=== PATIENT | female | born 1955 | race Caucasian/White ===

== ENCOUNTER 2022-11-08 07:51 | Outpatient (REF) | payer BC, SELFPAY ==
--- NOTE | ~2022-11-08 | XR_ITS ---
EXAMINATION: XR KNEE, RIGHT XR KNEE AP STANDING CLINICAL INFORMATION: Pain. COMPARISON: None available. TECHNIQUE: Lateral and axial views of the right knee were obtained. AP bilateral standing view of the knees was obtained. FINDINGS: There is mild bony demineralization. There is moderately severe narrowing of the bilateral lateral joint space compartments. There is a secondary bilateral valgus configuration. There is moderate narrowing of the right patellofemoral compartment. There is tricompartment peripheral osteophyte formation of the bilateral knees. No fracture or dislocation is seen. There is a moderately large right knee joint effusion. No foreign body is noted. XR/XR knee RT 2V IMPRESSION: 1. There is moderately severe osteoarthritic change of the lateral joint space compartment of the right knee, and moderate osteoarthritic changes seen of the patellofemoral compartment. 2. There is moderately severe osteoarthritic change of the lateral joint space compartment of the left knee. 3. There is a moderately large right knee joint effusion.
--- NOTE | ~2022-11-08 | XR_ITS ---
EXAMINATION: XR KNEE, RIGHT XR KNEE AP STANDING CLINICAL INFORMATION: Pain. COMPARISON: None available. TECHNIQUE: Lateral and axial views of the right knee were obtained. AP bilateral standing view of the knees was obtained. FINDINGS: There is mild bony demineralization. There is moderately severe narrowing of the bilateral lateral joint space compartments. There is a secondary bilateral valgus configuration. There is moderate narrowing of the right patellofemoral compartment. There is tricompartment peripheral osteophyte formation of the bilateral knees. No fracture or dislocation is seen. There is a moderately large right knee joint effusion. No foreign body is noted. XR/XR knee standing BI IMPRESSION: 1. There is moderately severe osteoarthritic change of the lateral joint space compartment of the right knee, and moderate osteoarthritic changes seen of the patellofemoral compartment. 2. There is moderately severe osteoarthritic change of the lateral joint space compartment of the left knee. 3. There is a moderately large right knee joint effusion.
== END 2022-11-08 07:52 | disposition home or self-care (01) ==
LOC: HO.HOSX 07:51
PROVIDERS: PCP Internal Medicine; Visit Provider Orthopaedic Surgery
DX: M17.11 Unilateral primary osteoarthritis, right knee (principal)
CPT/HCPCS: 73560; 73565

== ENCOUNTER 2023-01-09 08:17 | Outpatient (AMB) | payer BC, SELFPAY ==
--- NOTE | 2023-01-09 08:18 | MHC.OFFVIS ---
Intake Intake Visit Reasons: yumiko- Meniscal Surgery, Bone on bone Intake Note: Kierra is a 67 year old female who presents with complaints of progressively worsening right knee pain and giving way. She did undergo right knee arthroscopic surgery in 2009. She had fairly good relief from that procedure. She did re-injure her right knee approximately 1 year ago. She twisted her knee and had acute onset of pain. Most of her pain is along the medial and lateral aspects of her right knee. She states that her right knee will give out several times per day. She has done physical therapy for 12 weeks over the last 6 months which aggravated her pain. She has also tried Tylenol which gives her minimal relief. She is not able to take anti-inflammatory medicines because she is on Xarelto. She has had injections in the past which gave her temporary relief. She would like to hold off on total knee replacement surgery for as long as possible. Allergies Penicillins Allergy (Verified 01/09/23 08:20) Weakness Medication List - Last Reconciled 01/09/23 by Renzo Coats MD omeprazole 40 mg PO DAILY rivaroxaban (Xarelto) 20 mg PO DAILY simvastatin 40 mg PO DAILY timolol 0.25% 1 drp ophthalmic (eye) BID [facility] Medical History (Updated 11/08/22 @ 08:57 by Renzo Coats MD) High cholesterol Pulmonary embolism Surgical History (Updated 11/08/22 @ 08:20 by Gina Arroyo [facility]) History of lateral meniscus repair of right knee Social History Patient Tobacco Use Status: Never used Tobacco Current occupation: [employer] Physical Exam Const Other: Well-nourished well-developed very friendly female awake alert and oriented x3 in no acute distress Extrem Other: Bilateral lower extremity examination shows good capillary refill, no skin lesions noted, normal sensation light touch Right knee examination shows a mild effusion, mild crepitus with range of motion, tenderness along her medial and lateral joint lines, positive Nahun's test, no instability Office Procedures Joint Injection/Drain Joint Injection/Drain Primary Site: right knee Prep: site was prepped using aseptic technique Injected: 40 mg of, Kenalog and 1% plain lidocaine Procedure: The patient tolerated the procedure well Coding 27662 - Large joint Procedure code (CPT) selection complete Results Reviewed Results Reviewed: 01/09/23 08:20 Lidocaine HCl 2 % MPF [Xylocaine 2 % MPF] 5 ml .ROUTE .STK-MED ONE Triamcinolone Acetonide [Kenalog-40] 40 mg .ROUTE .STK-MED ONE X-rays of the patient's right knee show moderate diffuse joint space narrowing, no acute bony abnormalities MRI of the patient's right knee shows moderate diffuse degenerative changes, tearing of her medial meniscus and possible tearing of her lateral meniscus Assessment & Plan Assessment & Plan (1) Arthritis of right knee: Code(s): M17.11 - Unilateral primary osteoarthritis, right knee Plan Ms. Kee presents with right knee pain and mechanical symptoms due to early degenerative joint disease as well as medial and lateral meniscus tearing. I had a lengthy discussion with patient regarding the treatment options. The risks and benefits of a cortisone injection were discussed at length with the patient. The patient wished to proceed. She tolerated the injection well. Prior to the injections 7 cc of clear fluid were aspirated from her right knee. If she does not get lasting relief from the cortisone injection therapy she is considering undergoing right knee revision arthroscopic surgery later this year. She will contact my office to pick a surgery date when she is ready to do so. Surgery will most likely involve right knee diagnostic arthroscopy with arthroscopic partial medial meniscectomy and possible partial lateral meniscectomy. She will continue with her activity modifications in the meantime. Feel free to call me at any time should questions regarding her orthopedic management arise. I spent 22 minutes in reviewing the patient's records and imaging studies, seeing the patient and documenting in the medical record. Orders: Orders AMB Joint Injection/Aspiration Today M17.11 - Unilateral primary osteoarthritis, right knee Coding Level of Care Code Est Pt Level 2 (63796) Diagnoses Arthritis of right knee M17.11 CPT Codes Coding - 19908 Large joint: 72515 - Large joint ([id number])
== END 2023-01-09 08:40 | disposition home or self-care (01) ==
PROVIDERS: PCP Internal Medicine; Visit Provider Orthopaedic Surgery
DX: M17.11 Unilateral primary osteoarthritis, right knee (principal); Z96.651 Presence of right artificial knee joint
CPT/HCPCS: 20610; 99214

== ENCOUNTER → 2023-01-09 08:17 | Outpatient (BNVA) | payer BC, SELFPAY | PROVIDERS: PCP Internal Medicine; Visit Provider Orthopaedic Surgery | DX: M17.11 Unilateral primary osteoarthritis, right knee (principal) | CPT/HCPCS: 20610; J3301 ==

== ENCOUNTER 2023-03-28 07:52 | Outpatient (AMB) | payer BC, SELFPAY ==
--- NOTE | 2023-03-28 07:55 | MHC.OFFVIS ---
Intake Intake Visit Reasons: PreOp-Rt Knee Arthroscopy 04/19/23 Intake Note: Kierra is a 67 year old female who presents with complaints of progressively worsening right knee pain and giving way. She did undergo right knee arthroscopic surgery in 2009. She had fairly good relief from that procedure. She did re-injure her right knee approximately 1 year ago. She twisted her knee and had acute onset of pain. Most of her pain is along the medial and lateral aspects of her right knee. She states that her right knee will give out several times per day. She has done physical therapy for 12 weeks over the last 6 months which aggravated her pain. She has also tried Tylenol which gives her minimal relief. She is not able to take anti-inflammatory medicines because she is on Xarelto. She has had injections in the past which gave her temporary relief. She would like to hold off on total knee replacement surgery for as long as possible. Allergies Penicillins Allergy (Verified 01/09/23 08:20) Weakness Medication List - Last Reconciled 03/28/23 by Renzo Coats MD omeprazole 40 mg PO DAILY rivaroxaban (Xarelto) 20 mg PO DAILY simvastatin 40 mg PO DAILY timolol 0.25% 1 drp ophthalmic (eye) BID [facility] Medical History (Updated 03/28/23 @ 07:58 by Renzo Coats MD) High cholesterol Pulmonary embolism Surgical History (Updated 11/08/22 @ 08:20 by Gina Arroyo [facility]) History of lateral meniscus repair of right knee Social History Patient Tobacco Use Status: Never used Tobacco Current occupation: [employer] Physical Exam Const Other: Well-nourished well-developed very friendly female awake alert and oriented x3 in no acute distress Lungs - clear to auscultation bilaterally with symmetric expansion Cardiovascular exam - regular rate and rhythm Abdominal exam - soft nontender nondistended Extrem Other: Bilateral lower extremity examination shows good capillary refill, no skin lesions noted, normal sensation light touch Right knee examination shows a minimal effusion, mild crepitus with range of motion, tenderness along her medial and lateral joint lines, positive Nahun's test, no instability Results Reviewed Results Reviewed: MRI of the patient's right knee shows mild diffuse degenerative changes, a tear of her medial meniscus, possible tearing of her lateral meniscus, no acute bony abnormalities Assessment & Plan Assessment & Plan (1) Tear of medial meniscus of right knee: Code(s): S83.241A - Other tear of medial meniscus, current injury, right knee, initial encounter Plan: Ms. Kee presents with progressively worsening right knee pain and mechanical symptoms due to early degenerative joint disease, a tear of her medial meniscus and possible lateral meniscus tearing. I had a lengthy discussion with the patient regarding the treatment options. The risks and benefits of revision right knee arthroscopic surgery were discussed at length with the patient. The patient wishes to proceed. She does understand that she may not get 100% relief from the procedure depending on the severity of her degenerative changes. The patient wishes to hold off on right total knee replacement surgery for as long as possible. The patient was given a prescription for oxycodone at her preoperative appointment. I will see the patient back 2-3 weeks following her surgery for her 1st postoperative appointment. The patient will follow-up as instructed. Feel free to call me at any time should questions regarding her orthopedic management arise. I spent 22 minutes in reviewing the patient's records and imaging studies, seeing the patient and documenting in the medical record. Medications: New oxycodone Partial Fill upon patient request. 5 mg PO Q6H PRN 20 tabs 0RF pain Coding Level of Care Code Est Pt Level 2 (99959) Diagnoses Tear of medial meniscus of right knee S83.241A
== END 2023-03-28 08:15 | disposition home or self-care (01) ==
PROVIDERS: PCP Internal Medicine; Visit Provider Orthopaedic Surgery
DX: S83.241A Other tear of medial meniscus, current injury, right knee, initial encounter (principal)
CPT/HCPCS: 99212

== ENCOUNTER → 2023-03-28 07:52 | Outpatient (BNVA) | payer BC, SELFPAY | PROVIDERS: PCP Internal Medicine; Visit Provider Orthopaedic Surgery ==

== ENCOUNTER 2023-04-19 10:23 | Day surgery (SDC) | payer BC, SELFPAY ==
[2023-04-16 16:14] VITALS: BMI 28.2
--- NOTE | 2023-04-18 11:53 | HO.ANESPROP2 ---
Documented by User: Imani Moreira NP 04/18/23 11:55 HPI - Anesthesia Eval Consult details Narrative: 67yo F for Right Knee Arthroscopy partial medial meniscectomy, possible lateral meniscectomy Xarelto for PE 10/2022 [facility] Active Problems Active Problems: All Active Problems (Updated 04/16/23 @ 16:13 by Dolly Mancini, YVES) Tear of medial meniscus of right knee (Acute) Arthritis of right knee (Acute) Left knee pain (Acute) Past Medical History Medical History Pre-diabetes Low vitamin D level Renal cyst Anxiety Pulmonary nodule Glaucoma DJD (degenerative joint disease) GERD (gastroesophageal reflux disease) High cholesterol Pulmonary embolism Surgical History Surgical History (Updated 04/16/23 @ 16:02 by Dolly Mancini, YVES) Hx of colonoscopy Hx of tubal ligation History of lateral meniscus repair of right knee Social History Social History (Updated 04/16/23 @ 16:03 by Dolly Mancini RN) Household Members: None Housing: House Are you a primary field care manager to a significant other at home: No Do you presently have visiting nurse or other home services: No Patient Tobacco Use Status: Never used Tobacco Use of substances other than those prescribed or required for medical reasons: No Have you been hit, kicked, punched, or otherwise hurt by someone within the past year? If so, by whom?: No Are you DNR?: No Advance Directives: No Advance Directives Information Provided: Yes Advance Directives on File: No Recently lost weight without trying: No Nutrition Risks: No Nutritional Risk Poor oral hygiene: No Current occupation: [email or web address] Allergies Allergy/AdvReac Type Severity Reaction Status Date / Time Penicillins Allergy Weakness Verified 04/16/23 16:03 Active Medications: Current Medications Clindamycin Phosphate (Cleocin) 900 mg in 50 mls @ 50 mls/hr IV PREOP ONE Stop: 04/19/23 05:38 Home Medications Medication Instructions Recorded Confirmed Last Taken Type omeprazole 40 mg capsule,delayed 40 mg PO DAILY 11/08/22 04/16/23 Unknown History release rivaroxaban 20 mg tablet (Xarelto) 20 mg PO DAILY 11/08/22 04/16/23 Unknown History simvastatin 40 mg tablet 40 mg PO DAILY 11/08/22 04/16/23 Unknown History timolol 0.25 % eye drops 1 drp ophthalmic (eye) BID 11/08/22 04/16/23 Unknown History Exam Height,Weight and Vital Signs: Height 5 ft 7 in Weight 81.647 kg Assessment and Plan Assessment Anesthesia Assessment: Chart Reviewed Documented by User: Pedro Pablo Brito MD 04/19/23 12:21 [facility] Past Medical History Medical History Pre-diabetes Low vitamin D level Renal cyst Anxiety Pulmonary nodule Glaucoma DJD (degenerative joint disease) GERD (gastroesophageal reflux disease) High cholesterol Pulmonary embolism Family History Family history of problems with anesthesia: No Surgical History Surgical History (Updated 04/16/23 @ 16:02 by Dolly Mancini RN) Hx of colonoscopy Hx of tubal ligation History of lateral meniscus repair of right knee History of Problems with Anesthesia: No Social History Social History (Updated 04/16/23 @ 16:03 by Dolly Mancini RN) Household Members: None Housing: House Are you a primary field care manager to a significant other at home: No Do you presently have visiting nurse or other home services: No Patient Tobacco Use Status: Never used Tobacco Use of substances other than those prescribed or required for medical reasons: No Have you been hit, kicked, punched, or otherwise hurt by someone within the past year? If so, by whom?: No Are you DNR?: No Advance Directives: No Advance Directives Information Provided: Yes Advance Directives on File: No Recently lost weight without trying: No Nutrition Risks: No Nutritional Risk Poor oral hygiene: No Current occupation: [email or web address] Allergies Allergy/AdvReac Type Severity Reaction Status Date / Time Penicillins Allergy Weakness Verified 04/16/23 16:03 Home Medications Medication Instructions Recorded Confirmed Last Taken Type omeprazole 40 mg capsule,delayed 40 mg PO DAILY 11/08/22 04/16/23 Unknown History release rivaroxaban 20 mg tablet (Xarelto) 20 mg PO DAILY 11/08/22 04/16/23 Unknown History simvastatin 40 mg tablet 40 mg PO DAILY 11/08/22 04/16/23 Unknown History timolol 0.25 % eye drops 1 drp ophthalmic (eye) BID 11/08/22 04/16/23 Unknown History Exam Airway Mallampati Class: II TM Dist: >3cm Neck ROM: Limited Heart: rrr Lungs: cta Assessment and Plan Assessment Anesthesia Assessment: Anesthesia Plan Discussed Final Anesthetic Review Family History of Problems with Anesthesia: No History of Problems with Anesthesia: No NPO: Yes ASA Class: III Final Preanesthetic Review: No Changes in Pt Med Stat, Meds/Allgs Chart Reviewed, Consent Obtained/Reviewed and Anes Risks/Benef Reviewed Patient Risk: Intermediate Procedure Risk: Intermediate Anesthetic Plan Anesthetic Plan: GA and Agree w/ Assess. and Plan Disposition: Standard PACU
[2023-04-19] VITALS (14 sets, daily range): BP systolic 143–173; BP diastolic 78–96; PULSE 64–78; RESP 15–18; TEMP 36.1–37; O2SAT 96–100; BMI 30.2
[2023-04-19] MEDS: Lactated Ringers 1,000 ML 100 ML IVCONT (11:32)
--- NOTE | 2023-04-19 15:55 | P.BOP_ITS ---
Brief Operative Note Date of Service: 04/19/23 Pre-op diagnosis: Right knee medial meniscus tear Post-op diagnosis: same Procedure: Right knee diagnostic arthroscopy with right knee arthroscopic partial medial meniscectomy Implants: none Surgeon: Renzo Coats MD Anesthesia: GLMA Was an Personnel Quality Assurance Auditor used for this Procedure?: No Estimated blood loss (mL): 10 Pathology: none sent Condition: stable Disposition: PACU
--- NOTE | 2023-04-19 15:56 | W.PM.OPN ---
Operative Note Operative Note Date of Service: 04/19/23 Narrative: After the patient was identified as Kierra Kee and her right knee was initialed by myself they were brought to the operating room where general anesthesia was induced by the anesthesiologist in routine fashion. Because of the patient's allergy to penicillin she was given 900 mg of IV clindamycin preoperatively for infection prophylaxis. A formal time-out was completed. The patient's right lower extremity was prepped and draped in sterile fashion. Marcaine with epinephrine was injected into the planned incision sites as well as their left knee joint. A # 11 scalpel blade was used to make an anterolateral portal 1 cm proximal to the joint line and 1 cm lateral to the patellar tendon. Blunt trocar technique was used into the suprapatellar pouch with the knee in extension. Diagnostic arthroscopy showed multiple bands of thickened plica which would be excised at the end of the procedure. There were no loose bodies or abnormalities found in either the medial or lateral gutters. There were diffuse grades 2 and 3 degenerative changes of the undersurface of the patella as well as grade 2 degenerative changes of the trochlear groove. The patient's knee was flexed to 45 degrees and a valgus force was placed upon it. The medial compartment was entered. An anteromedial portal was made 1 cm proximal to the joint line and 1 cm medial to the patellar tendon. Probing of the medial meniscus showed a radial tear of the anterior horn. A partial medial meniscectomy was performed using the arthroscopic shaver. Following the partial meniscectomy the remainder of the meniscus tissue was stable. There were diffuse grade 2 degenerative changes of the medial femoral condyle as well as diffuse grade 2 degenerative changes of the medial tibial plateau. The articular surface of the medial femoral condyle was made smooth using the arthroscopic shaver. The articular surface of the medial tibial plateau was already smooth so no chondroplasty was indicated. The patient's knee was then placed into a neutral position. There was no injury to the anterior cruciate ligament. The patient's knee was then placed into the figure of 4 position and the lateral compartment was entered. There were diffuse grades 3 and 4 degenerative changes of the lateral femoral condyle and lateral tibial plateau. The articular surfaces were smooth so no chondroplasty was indicated. There was no evidence of lateral meniscus tearing. The patient's knee was once again brought into extension and the suprapatellar pouch was entered. The arthroscopic shaver and the ArthroCare Wand were used to excise the thickened bands of plica. The undersurface of the patella was then made smooth using the arthroscopic shaver. The articular surface of the trochlear groove was already smooth so no chondroplasty was indicated. The knee joint was irrigated and then drained. All arthroscopic instruments were removed. The 2 portals were closed with 3-0 nylon interrupted suture. The knee joint was injected with Marcaine. Dry sterile dressing and Florentino bandages were placed over the patient's knee. The patient was woken and expand the operating room. They were transferred to the recovery room in stable condition.
[2023-04-19] MEDS: fentaNYL citrate/PF 100 MCG/2 ML VIAL 25 MCG IVPUSH ×3 (16:25→17:10)
== END 2023-04-19 17:36 | disposition home or self-care (01) ==
PROVIDERS: PCP Internal Medicine; Visit Provider Orthopaedic Surgery
PROC: (CPT 29870; principal; 2023-04-19 13:10)
DX: S83.241A Other tear of medial meniscus, current injury, right knee, initial encounter (principal); X50.1XXA Overexertion from prolonged static or awkward postures, initial encounter; Y93.9 Activity, unspecified; Y92.9 Unspecified place or not applicable; Y99.9 Unspecified external cause status; M67.51 Plica syndrome, right knee; M17.11 Unilateral primary osteoarthritis, right knee; M23.51 Chronic instability of knee, right knee; E78.00 Pure hypercholesterolemia, unspecified; I26.99 Other pulmonary embolism without acute cor pulmonale; Z79.01 Long term (current) use of anticoagulants; Z79.899 Other long term (current) drug therapy; Z88.0 Allergy status to penicillin; Z98.890 Other specified postprocedural states
CPT/HCPCS: 29881; J0131; J0171; J0736; J1100; J1885; J2405; J2704; J2795; J3010

== ENCOUNTER → 2023-04-19 10:23 | Outpatient (BNV) | payer BC, SELFPAY | PROVIDERS: PCP Internal Medicine; Visit Provider Orthopaedic Surgery | DX: S83.241A Other tear of medial meniscus, current injury, right knee, initial encounter (principal) | CPT/HCPCS: 29881 ==

== ENCOUNTER 2023-05-02 07:46 | Outpatient (AMB) | payer BC, SELFPAY ==
--- NOTE | 2023-05-02 07:51 | MHC.OFFVIS ---
Intake Intake Visit Reasons: PO-Rt Knee Arthroscopy 04/19/23 DR Intake Note: Kierra is a 67 year old female who presents today for a post operative appointment s/p Right Knee Arthroscopy 04/19/23. She is doing well no concerns. She reports mild intermittent discomfort in her right knee. She denies any fevers or chills. She continues with her home stretching program. She has returned to work. Allergies Penicillins Allergy (Verified 04/16/23 16:03) Weakness Medication List - Last Reconciled 05/02/23 by Renzo Coats MD omeprazole 40 mg PO DAILY oxycodone 5 mg PO Q6H PRN rivaroxaban (Xarelto) 20 mg PO DAILY simvastatin 40 mg PO DAILY timolol 0.25% 1 drp ophthalmic (eye) BID [facility] Medical History (Updated 05/02/23 @ 08:18 by Renzo Coats MD) Pre-diabetes Low vitamin D level Renal cyst Anxiety Pulmonary nodule Glaucoma DJD (degenerative joint disease) GERD (gastroesophageal reflux disease) High cholesterol Pulmonary embolism Surgical History (Updated 04/16/23 @ 16:02 by Dolly Mancini, RN) Hx of colonoscopy Hx of tubal ligation History of lateral meniscus repair of right knee Social History (Updated 04/16/23 @ 16:03 by Dolly Mancini, RN) Household Members: None Housing: House Are you a primary career resource technician to a significant other at home: No Do you presently have visiting nurse or other home services: No Patient Tobacco Use Status: Never used Tobacco Current occupation: [employer] Physical Exam Extrem Other: Right knee examination shows that the surgical incisions are healing well, no erythema, minimal discomfort with range of motion, mild crepitus with range of motion Assessment & Plan Assessment & Plan (1) Right knee pain: Code(s): M25.561 - Pain in right knee Plan Ms. Kee is doing well after undergoing revision right knee arthroscopic surgery on 04/19/2023. Her sutures were removed and Steri-Strips placed over her incisions. She will continue to progress gradually to activities as tolerated. She will contact me prior to her follow-up appointment in 2 months should any questions or concerns arise. Feel free to call me at any time should questions regarding her orthopedic management arise. Coding Level of Care Code Global (99123) Diagnoses Right knee pain M25.561
== END 2023-05-02 08:17 | disposition home or self-care (01) ==
PROVIDERS: PCP Internal Medicine; Visit Provider Orthopaedic Surgery
DX: M25.561 Pain in right knee (principal)
CPT/HCPCS: 99024

== ENCOUNTER → 2023-05-02 07:46 | Outpatient (BNVA) | payer BC, SELFPAY | PROVIDERS: PCP Internal Medicine; Visit Provider Orthopaedic Surgery ==